=== PATIENT | female | born 1990 | race Hispanic/Latino ===

== ENCOUNTER 2018-07-08 09:07 | Outpatient (CLI) | payer OTHER ==
--- NOTE | 2018-07-08 14:01 | ULT ---
OBSTETRICAL UTLRASOUND: DATE: 07/08/2018. COMPARISON: None. HISTORY: Evaluate size and dates, anatomy, 28-year-old female. TECHNIQUE: Multiplanar, mathis scale, sonographic imaging of the gravid uterus obtained. FINDINGS: Cervical length is at least 5 cm. A single intrauterine gestation is present demonstrating a vertex presentation. intracranial contents, nose and lips, and 4-chamber heartbeat appear unremarkable. heart rate is 129 b.p.m. stomach, urinary bladder, umbilical cord and cord insertion, kidneys, and spine appear grossly unremarkable. Placenta located posteriorly with no evidence for previa or abruption. Amniotic fluid index is appro ximately 8.2 cm. BIOMETRY: BPD 8.6 cm, 27 weeks 4 days HC 26.1 cm, 28 weeks 3 days AC 23.3 cm, 27 weeks 5 days FL 5.1 cm, 27 weeks 2 days Average based on ultrasound is 27 weeks 6 days. Estimated date of delivery is 10/01/2018 with an estim ated weight of 1088 gm +/-159 gm. IMPRESSION: Single live intrauterine gestation as detailed above. POS: [facility]
== END 2018-07-08 09:08 | disposition home or self-care (01) ==
LOC: BICULT 09:07
PROVIDERS: ATTEND Family Medicine
DX: O09.893 Supervision of other high risk pregnancies, third trimester (principal)
CPT/HCPCS: 76805

== ENCOUNTER 2018-09-19 05:30 | Inpatient (IN) | payer MEDICAID, OTHER, SELFPAY ==
[2018-09-19] MEDS: Lactated Ringer's 1,000 ML IV SCH ×2 (08:00→11:32)
[2018-09-19] MEDS ORDERED: Misoprostol 200 MCG TAB PR PRN (08:14)
[2018-09-19] MEDS ORDERED: Penicillin G Potassium 5 MILL.UNITS in Sodium Chloride 0.9% 100 ML IVPB SCH (08:14)
[2018-09-19] MEDS ORDERED: Ibuprofen 800 MG TAB PO PRN (08:14)
[2018-09-19] MEDS ORDERED: HYDROcodone/Acetaminophen 5/325 mg Tablet PO PRN ×3 (08:14→16:01)
[2018-09-19] MEDS ORDERED: Carboprost 250 MCG/ML AMP IM PRN (08:14)
[2018-09-19] MEDS ORDERED: Ondansetron PF 4 MG/2 ML Vial IVP PRN ×2 (08:14→16:01)
[2018-09-19] MEDS ORDERED: Lidocaine 1% (PF) 30 ML VIAL SC PRN (08:14)
[2018-09-19] MEDS ORDERED: Butorphanol Tartrate 1 MG/ML VIAL SLOW IVP PRN (08:14)
[2018-09-19] MEDS ORDERED: NS w/ Oxytocin 10 units 500 ML IV SCH ×2 (08:14)
[2018-09-19] MEDS ORDERED: Methylergonovine 0.2 MG/ML VIAL IM PRN (08:14)
[2018-09-19] MEDS ORDERED: Diphenoxylate HCl/Atropine Tablet PO PRN (08:14)
[2018-09-19 08:18] VITALS: BMI 34.2
[2018-09-19 08:28] LABS: Mean Corpuscular HGB CONC 32.7 g/dL (32.0-36.0); Mean Corpuscular Hemoglobin 29.4 pg (27.0-31.0); Mean Corpuscular Volume 89.9 fL (78.0-98.0); Mean Platelet Volume 7.1 fL (7.4-10.4); Platelet Count 260 thou/uL (130-400); RBC Distribution Width 12.1 % (11.5-14.5); Red Blood Cell (RBC) Count 4.44 mill/uL (4.20-5.40); White Blood Cell (WBC) Count 12.7 thou/uL (4.8-10.8)
[2018-09-19] MEDS ORDERED: NS w/ Oxytocin 10 units 500 ML ONE (08:32)
[2018-09-19 09:08] LABS: Syphilis Antibody Nonreactive (Nonreactive); Syphilis Antibody Index 0.02 S/CO (<1.00 Non-Reactive)
[2018-09-19 09:09] LABS: HBSAg Index 0.24 S/CO (0-0.99); Hep B Surf Ag Non-Reactive S/CO (NonReactive)
[2018-09-19] MEDS ORDERED: Fentanyl 4 mcg/Bup 0.1% Cadd 100 ML ONE (11:02)
[2018-09-19] MEDS ORDERED: Eucerin (Mineral Oil/Petrolatum,White) 30 gm Jar TOP PRN (11:37)
[2018-09-19] MEDS ORDERED: Acetaminophen 325 MG TAB PO PRN (11:37)
[2018-09-19] MEDS ORDERED: Lactated Ringer's 500 ML IV PRN (11:37)
[2018-09-19] MEDS ORDERED: Naloxone HCl 0.4 mg/ml Vial IVP PRN ×2 (11:37)
[2018-09-19] MEDS ORDERED: ePHEDrine/0.9% NaCl/PF SYRINGE 50 mg/10 ml SLOW IVP PRN (11:37)
[2018-09-19] MEDS ORDERED: Fentanyl 4 mcg/Bupivacaine 0.1% Cassette 100 ML EPIDURAL SCH (11:45)
[2018-09-19] MEDS ORDERED: Communication Order-Pharmacy FS SCH (11:45)
[2018-09-19] MEDS ORDERED: Penicillin G 2.5 MILL.units 2.5 MILL.UNITS in Premix Bag 1 BAG IVPB SCH (13:00)
[2018-09-19] MEDS: NS / Oxytocin 40 units/1000ml 1,000 ML IV PRN ×2 (13:55→15:47)
[2018-09-19] MEDS ORDERED: Adacel (T-DAP) 0.5 ML SYRINGE IM ONE (16:01)
[2018-09-19] MEDS ORDERED: Milk Of Magnesia 30 ML UDCUP PO PRN (16:01)
[2018-09-19] MEDS ORDERED: NS / Oxytocin 40 units/1000ml 1,000 ML IV SCH (16:01)
[2018-09-19] MEDS ORDERED: Bisacodyl 10 MG SUPP PR PRN (16:01)
[2018-09-19] MEDS ORDERED: Lanolin Ointment 7 GM TUBE TOP PRN (16:01)
[2018-09-19] MEDS ORDERED: diphenhydrAMINE 25 MG CAP PO PRN (16:01)
[2018-09-19] MEDS: Ferrous Sulfate 325 MG TAB PO SCH (17:27)
[2018-09-19] MEDS: Docusate Calcium (SURFAK) 240 MG CAP PO SCH (22:11)
[2018-09-19] MEDS: Ibuprofen 800 MG TAB PO SCH (22:11)
[2018-09-20 05:30] LABS: Hemoglobin 12.1 g/dL (12.0-16.0); Mean Corpuscular HGB CONC 32.8 g/dL (32.0-36.0); Mean Corpuscular Hemoglobin 29.7 pg (27.0-31.0); Mean Corpuscular Volume 90.6 fL (78.0-98.0); Mean Platelet Volume 6.7 fL (7.4-10.4); Platelet Count 217 thou/uL (130-400); RBC Distribution Width 12.1 % (11.5-14.5); Red Blood Cell (RBC) Count 4.07 mill/uL (4.20-5.40); White Blood Cell (WBC) Count 11.8 thou/uL (4.8-10.8)
[2018-09-20] MEDS: Ibuprofen 800 MG TAB PO SCH ×2 (06:44→14:57)
[2018-09-20] MEDS: Ferrous Sulfate 325 MG TAB PO SCH (07:44)
[2018-09-20] MEDS: Docusate Calcium (SURFAK) 240 MG CAP PO SCH (08:58)
[2018-09-20] MEDS ORDERED: Prenatal Vitamin 1 TAB PO SCH (09:00)
[2018-09-20 11:13] VITALS: BP 90/50; TEMP 98.6
== END 2018-09-20 16:30 | disposition home or self-care (01) | DRG 807 ==
LOC: L&D 06:32 → 3SW 16:23
PROVIDERS: ADMIT Family Medicine; ATTEND Family Medicine
PROC: 10907ZC Drainage of Amniotic Fluid, Therapeutic from Products of Conception, Via Natural or Artificial Opening (ICD-10-PCS; principal; 2018-09-19)
PROC: 10E0XZZ Delivery of Products of Conception, External Approach (ICD-10-PCS; 2018-09-19)
PROC: 3E033VJ Introduction of Other Hormone into Peripheral Vein, Percutaneous Approach (ICD-10-PCS; 2018-09-19)
DX: O76 Abnormality in fetal heart rate and rhythm complicating labor and delivery (principal); Z37.0 Single live birth; Z3A.39 39 weeks gestation of pregnancy
CPT/HCPCS: 36415; 51702; 85027; 86780; 86850; 86900; 86901; 87340; J2001